=== PATIENT | female | born 1965 | race Caucasian/White ===

== ENCOUNTER 2021-12-15 12:06 | Emergency (ER) | payer OTHER ==
[~2021-12-15] VITALS: Ht 165.1 cm; Wt 54.5 kg
[2021-12-15] MEDS ORDERED: LIDOCAINE 5% (LIDODERM) PATCH TD ONE (13:20)
[2021-12-15] MEDS ORDERED: NORCO, ANEXSIA 5/325MG TABLET (HYDROcodone/ACETAMINOPHEN) PO ONE (13:20)
[2021-12-15 13:42] VITALS: BP 134/76
[2021-12-15] MEDS ORDERED: GABA-283 PO (14:20)
[2021-12-15] MEDS ORDERED: LIDO5DIS41 TD (14:20)
[2021-12-15] MEDS ORDERED: **NOTE PATIENT COMMENT** MISC XX SCH (21:00)
== END 2021-12-15 15:03 | disposition home or self-care (01) ==
LOC: M ED 12:06
DX: M48.02 Spinal stenosis, cervical region (principal); M25.78 Osteophyte, vertebrae; K21.9 Gastro-esophageal reflux disease without esophagitis; F10.10 Alcohol abuse, uncomplicated; Z88.2 Allergy status to sulfonamides; Z79.899 Other long term (current) drug therapy